=== PATIENT | female | born 1985 | race Caucasian/White ===

== ENCOUNTER 2023-08-11 11:45 | Outpatient (CLI) | payer BC ==
[2023-08-11 23:24] LABS: CHLAMYDIA TRACHOMATIS DNA NEGATIVE (NEGATIVE); NEISSERIA GONORRHOEAE DNA NEGATIVE (NEGATIVE)
[2023-08-12 00:24] LABS: BACTERIAL VAGINOSIS DNA NEGATIVE (NEGATIVE); CANDIDA GLABRATA DNA NEGATIVE (NEGATIVE); CANDIDA GROUP DNA NEGATIVE (NEGATIVE); CANDIDA KRUSEI DNA NEGATIVE (NEGATIVE); TRICHOMONAS VAGINALIS DNA NEGATIVE (NEGATIVE)
[2023-08-12 05:13] LABS: RPR Non Reactive (Non Reactive)
[2023-08-12 20:08] LABS: HCV AB Non Reactive (Non Reactive); HIV SCREEN 4TH GENERATION Non Reactive (Non Reactive)
== END 2023-08-11 12:00 | disposition home or self-care (01) ==
LOC: LAB.N 11:45
PROVIDERS: ATTEND Physician Assistant
DX: Z11.3 Encounter for screening for infections with a predominantly sexual mode of transmission (principal)
CPT/HCPCS: 36415; 81514; 86592; 86803; 87389; 87491; 87591; 87661

== ENCOUNTER 2023-12-10 15:13 | Outpatient (CLI) | payer BC ==
--- NOTE | 2023-12-10 16:43 | Ultrasound Report ---
PROCEDURE: Pelvic w/Transvaginal INDICATIONS: OVARIAN CYST TECHNIQUE: Real-time scanning was performed of the pelvic organs, with image documentation. Additional endovagi nal scanning was necessary due to incomplete visualization of the adnexal and endometrial structures by transabdominal scanning. COMPARISON: None. FINDINGS: Uterus: Uterus is anteverted and normal in size at 7.5 3.3 x 4.0 cm. The myometrium is homogeneous. The endometrium measures 6.2 mm in combined thickness. Ovaries: The right ovary measures 4.2 x 3.5 x 5.5 cm, with a calculated ovarian volume of 26.4 cc. The left ovary measures 2.2 x 1.5 x 2.4 cm, with a calculated ovarian volume of 4 cc. There is a focu s of decreased echogenicity within the right ovary measuring 4.1 x 3.0 x 3.2 cm. Other: No pathologic free abdominal or pelvic fluid. IMPRESSION: Decreased echogenicity within the right ovary most consistent with cyst. Minimal appearance of comple x in the to it possibly relating to hemorrhagic component. Reviewed by: Heather Platt MD on 12/10/2023 4:42 PM PDT Approved by: Heather Platt MD on 12/10/2023 4:42 PM PDT Station ID: [id number]
== END 2023-12-10 15:14 | disposition home or self-care (01) ==
LOC: DI 15:13
PROVIDERS: ATTEND Registered Nurse
DX: N83.201 Unspecified ovarian cyst, right side (principal)